=== PATIENT | male | born 1965 | race Hispanic/Latino ===

== ENCOUNTER 2017-01-24 23:09 | Emergency (ER) | payer OTHER ==
[~2017-01-24] VITALS: Ht 177.8 cm; Wt 90.9 kg
[~2017-01-24 23:09] MED LIST: AMIT10TA6 PO; RANI150T11 PO
[2017-01-24 23:20] VITALS: BP 116/69; PULSE 85; RESP 16; O2SAT 97
--- NOTE | 2017-01-25 00:07 | ED.REPORT ---
HPI-Hand Prob/Inj Date of Service January 25, 2017 ED Provider: Roshan Bennett Patient is a 51 year old male who presents to the ED s/p obtaining lacerations on his L index and middle fingers while using a table saw about 5 hours prior to arrival. He denies numbness, weakness, uncontrollable bleeding, or any other symptoms. His bleeding has subsided upon arrival. He reports he had 4 beers tonight before operating the saw. Patient takes amitriptyline to sleep. Nursing Notes Stated Complaint: FINGER LACERATION Chief Complaint: Laceration Nursing Notes Reviewed: Yes Allergies: Coded Allergies: No Known Allergies (Verified , 09/24/14) Scheduled Amitriptyline (Amitriptyline) 10 Mg Tablet 5 MG PO HS Ranitidine HCl (Ranitidine) 150 Mg Tablet 150 MG PO HS General Time Seen by Provider: 00:07 Chief Complaint Finger injury left Hx Obtained From: Patient, Spouse Arrived By: Walk-in Onset Occurred: 5 - 8 hours ago Immunizations: Tetanus > 10 yrs Past Medical History Past Medical History Upper GI bleed due to ulcer Colon polyps Past Surgical History Colonoscopy [address] Irby Polypectomy Smoking History Never Smoker Social History Alcohol Use: Denies alcohol use Drug Use: Denies drug use Ambulatory Status Independent Review of Systems Review of Systems Note: -uncontrollable bleeding +lacerations over L index and middle fingers Neurologic: Denies: Numbness, Weakness Complete sys rev & neg: except as marked. Physical Exam Initial Vital Signs Vital Signs (First) Date Time Temp Pulse Resp B/P Pulse Ox O2 Delivery O2 Flow Rate FiO2 01/24/17 23:20 36.4 85 16 116/69 97 Room Air Initial VS: Reviewed, Vital signs normal General/Constitutional: Well-developed, Well-nourished Head / Eyes: Atraumatic, Normocephalic Neck: Full range of motion Respiratory: No respiratory distress Cardiovascular: Intact distal pulses Skin: Warm, Dry Neurologic: Alert, Oriented, Nonfocal Psychiatric: Mood/affect normal, Behavior normal, Normal thought content Wrist / Hand: Neurologic intact, Vascular intact middle L finger: partial traumatic nail evulsion, multiple parallel lacerations of fingertip L index: small laceration involving partial evulsion of nail, some laceration of adjacent skin, not suturable Procedures Digital Nerve Block Time: 01:06 Procedure Performed by: ED physician Indication: Finger laceration repair, Nailbed laceration repair Consent / Setup / Site Prep: Informed consent provided, Consent from patient , Time-out performed, Hand hygiene observed, Stand sterile technique Skin Preparation Agent: Betadine Digit Involved: Index finger left, Middle finger left Digital Block Procedure: Two digital nerve block, Lidocaine 1% Post-Procedure / Complications: Antibiotic oint applied, Dressing applied, Condition improved, Tolerated procedure well, Patient stable Laceration Management Laceration Management: Tissue fragments placed and closed Time: 01:11 Procedure Performed by: ED physician Consent / Setup / Site Prep: Informed consent provided, Consent from patient , Time-out performed, Hand hygiene observed, Stand sterile technique Location of Wound: 4 parallel lacerations each approximately 1 cm long. Wound Length: 4 cm Local Anesthesia: Lidocaine 1% Digit Involved: Middle finger left Wound Preparation: Betadine Irrigation: Copious Foreign Body Explore / Removal: Explored for foreign body Undermining / Margins: Flaps aligned Repair Skin: ___ O (5), Nylon # Sutures - Skin: 4 Suture Technique: Simple Post-Procedure / Complications: Antibiotic oint applied, Dressing applied, No complications, Condition improved, Tolerated procedure well, Patient stable Re-Eval/Medical Decision Med Decision/Clinical Course 51-year-old male who has lacerations of the left middle and index fingertips, involving the nail beds but not deep enough to involve the bone. The index finger wound was debrided of pieces of nail, but will not require suturing. The middle finger wound had 4 parallel lacerations which were aligned and over sutured. Pieces the nail were read debrided. He was dressed with Tubegauz dressings and will return to the ER for me to recheck in 2 days. Re-Evaluation/Progress : Time of Eval: 01:26 Re-Evaluation/Progress Note: Discussed plan for discharge. Patient understands and agrees with plan. All questions addressed at this time. Counseled Regarding: Diagnosis, Need for follow-up, When/why to return to ED Discharge & Departure Primary Impression: Laceration of finger with damage to nail without foreign body Encounter type: initial encounter Qualified Code: S61.319A - Laceration without foreign body of unspecified finger with damage to nail, initial encounter Disposition: Home Discharge Condition All VS Reviewed: Yes Condition: Improved Patient Instructions: Finger Laceration (ED) Additional Instructions: Keep it clean and dry. Do not remove the bandage. I will recheck and re- bandage it on Wednesday night. Come to the emergency room after 9 PM and asked to see me specifically. Referrals: Johanna Otero (PCP) Scribe Attestation Portions of this note were transcribed by Marc Mandujano. I, Dr. Bennett personally performed the history, physical exam and medical decision-making; I reviewed and confirmed the accuracy of the information in the transcribed note. Signed by: Marc Mandujano 01/25/17, [id number] copies to: Johanna Otero Howard L MD January 25, 2017 00:07 MARC MANDUJANO January 25, 2017 00:10
[2017-01-25 01:56] VITALS: BP 117/61; PULSE 78; RESP 18; O2SAT 97
== END 2017-01-25 01:54 | disposition home or self-care (01) ==
LOC: SED 23:09
DX: S61.311A Laceration without foreign body of left index finger with damage to nail, initial encounter (principal); S61.313A Laceration without foreign body of left middle finger with damage to nail, initial encounter; W31.2XXA Contact with powered woodworking and forming machines, initial encounter; Y92.9 Unspecified place or not applicable; Y93.89 Activity, other specified; Y99.8 Other external cause status; Z86.010 Personal history of colon polyps

== ENCOUNTER 2017-01-26 20:50 | Emergency (ER) | payer OTHER ==
[~2017-01-26] VITALS: Ht 175.3 cm; Wt 108.2 kg
[2017-01-26 20:54] VITALS: BP 124/82; PULSE 84; RESP 18; O2SAT 97
--- NOTE | 2017-01-26 21:35 | ED.REPORT ---
HPI-Recheck W/B/S Date of Service January 26, 2017 ED Provider: Roshan Bennett MD A 51 year old male with no pertinent medical history presents to the ED for a wound recheck. The pt was seen on 01/24/2017 due to lacerations to his left second and third fingers. These lacerations were sutured and the pt was instructed to follow up in the ED. He presents to the ED tonight with no specific concerns. Nursing Notes Stated Complaint: FOLLOW UP ON FINGER/DR BENNETT TOLD TO COME BACK Chief Complaint: General Complaint Nursing Notes Reviewed: Yes Allergies: Coded Allergies: No Known Allergies (Verified , 09/24/14) Scheduled Amitriptyline (Amitriptyline) 10 Mg Tablet 5 MG PO HS Ranitidine HCl (Ranitidine) 150 Mg Tablet 150 MG PO HS General Time Seen by Provider: 21:24 Chief Complaint Wound check Hx Obtained From: Patient Arrived By: Walk-in Onset Occurred: 2 days ago Recent Healthcare: No recent hospitalization, Recent doctor visit Similar Sx Previous: Yes Past Medical History Past Medical History Upper GI bleed due to ulcer Colon polyps Past Surgical History Colonoscopy [address] Irby Polypectomy Smoking History Never Smoker Social History Alcohol Use: Denies alcohol use Drug Use: Denies drug use Ambulatory Status Independent Review of Systems Skin: Denies Rash Complete sys rev & neg: except as marked. Respiratory: Denies: Non-productive cough, Shortness of breath Cardiovascular: Denies: Chest pain GI: Denies: Abdominal pain Musculoskeletal: Reports: Extremity pain (left 2nd and 3rd fingers) Physical Exam Initial Vital Signs Vital Signs (First) Date Time Temp Pulse Resp B/P Pulse Ox O2 Delivery O2 Flow Rate FiO2 01/26/17 20:54 36.5 84 18 124/82 97 Room Air Initial VS: Reviewed, Vital signs normal Skin: Color NL, No rash, Warm, Dry lacerations on left second and third fingers scabbed over and healing well good flap alignment no active bleeding or evidence of infection General/Constitutional: Awake, Alert Head / Eyes: Atraumatic, Normocephalic, PERRL, EOMI ENT: Atraumatic, Airway patent, Mucous membranes moist Neck: Atraumatic, Supple, Full range of motion Respiratory / Chest: Atraumatic, Breath sounds NL, Breath sounds = bilat, No respiratory distress Cardiovascular: Heart rate NL, Regular rhythm, Heart sounds NL Abdomen: Atraumatic, Soft, Non-tender Back: Atraumatic, Full range of motion Upper Extremity / MS: Full range of motion Lower Extremity / Pelvis / MS: Atraumatic, Full range of motion Neurologic: Oriented X3, Speech NL, No motor deficits, No sensory deficits Psychiatric: Affect NL, Mood NL Re-Eval/Medical Decision Med Decision/Clinical Course 51-year-old who ran a sawblade into his fingertips. I debrided and repaired them 2 days ago. He is here at my request for recheck. They appear to be healing well without evidence of infection. Sutures out in 7 days. He was given a protective splint. Source of Hx: Old records Re-Evaluation/Progress : Time of Eval: 21:24 Patient Status: Condition improved Re-Evaluation/Progress Note: Pt informed of the diagnosis and plan for discharge during the initial interview. The pt understands and agrees with the plan. All questions are addressed at this time. Counseled Regarding: Diagnosis, Need for follow-up, When/why to return to ED Discharge & Departure Impression: Primary Impression: Laceration of finger with damage to nail without foreign body Encounter type: initial encounter Qualified Code: S61.319A - Laceration without foreign body of unspecified finger with damage to nail, initial encounter Additional Impression: Laceration re-check Disposition: Home Discharge Condition All VS Reviewed: Yes Condition: Stable Patient Instructions: Finger Laceration (ED) Additional Instructions: This appears to be healing well. Keep it covered and wear gloves while working the little aluminum splints might help to protect it and make it less sensitive to bumping. Sutures out in one week Referrals: Dru Hoffman MD (PCP) [place] Attestation Portions of this note were transcribed by Marva Sweet. I, Dr. Bennett personally performed the history, physical exam and medical decision-making; I reviewed and confirmed the accuracy of the information in the transcribed note. Signed by: Derek Allen, 01/26/17 and [id number]. copies to: Dru Hoffman MD, Howard L MD January 26, 2017 21:35 MARVA SWEET January 26, 2017 21:43
[2017-01-26 21:56] VITALS: BP 126/80; PULSE 80; RESP 17; O2SAT 98
== END 2017-01-26 21:55 | disposition home or self-care (01) ==
LOC: SED 20:50
DX: S61.311D Laceration without foreign body of left index finger with damage to nail, subsequent encounter (principal); S61.313D Laceration without foreign body of left middle finger with damage to nail, subsequent encounter; W27.0XXD Contact with workbench tool, subsequent encounter; Y93.89 Activity, other specified; Y92.89 Other specified places as the place of occurrence of the external cause; Y99.8 Other external cause status